=== PATIENT | male | born 1990 | race Caucasian/White ===

== ENCOUNTER 2017-12-01 15:14 | Emergency (ER) | payer SELFPAY ==
[2017-12-01 15:14] VITALS: BP 137/100; PULSE 107; RESP 14; TEMP 36.4; O2SAT 98; BMI 20.1
--- NOTE | 2017-12-01 15:28 | ED.DCSUM_ITS ---
- ER Visit Summary Date of Service: 12/01/17 Chief Complaint: Dental pain History of Present Illness: The patient is a 27 M presenting with dental pain worse for the past 3 days. It has been bothering him for a few years but he has not seen anyone for it yet. He is still eating and drinking normally. No fevers. No trouble swallowing. No neck pain or rash. Physical Examination: Wide spread dental decay but there is more focal decay and tenderness on percussion of the right mandibular second and third molar. No trismus. No abscess. No facial cellulitis. Submandibular tissues are soft. Test Results: None performed Emergency Department Course and Treatment: I will treat him with clindamycin and naproxen. He will follow-up with a dentist. Treatment Plan: Oral antibiotics and pain medication Disposition: Home in stable condition Impression: Initial encounter dental pain This note was generated with [employer] dictation software. It may contain incorrect words, spelling, and punctuation that were not noted in review of the chart prior to signing ED Disposition - Plan for ED Patient: Chief Complaint: Dental Instructions: ED Tooth Pain Prescriptions: Naproxen [Naprosyn] 500 mg PO BID PRN #20 tablet Clindamycin [Cleocin] 300 mg PO 4X/DAY #80 capsule Referrals: Jil Dixon [NON-STAFF] -
[2017-12-01] MEDS: Naproxen 500 MG Tablet PO (15:43)
[2017-12-01] MEDS: Clindamycin HCl 150 MG Capsule 300 MG PO (15:43)
[2017-12-01 15:44] VITALS: BP 125/89; PULSE 95; RESP 14; O2SAT 99
== END 2017-12-01 15:51 | disposition home or self-care (01) ==
LOC: ED 15:44
PROVIDERS: Emergency Provider Emergency Medicine
DX: K08.89 Other specified disorders of teeth and supporting structures (principal); K02.9 Dental caries, unspecified; Z72.0 Tobacco use
CPT/HCPCS: 99283